=== PATIENT | male | born 1940 | race Caucasian/White ===

== ENCOUNTER → 2020-04-11 15:15 | Outpatient (CLI) | payer MEDICARE, SELFPAY ==
[2020-04-11 17:04] LABS: Absolute Lymphocyte Count 0.94 X10^3/uL (0.83-4.51); Absolute Neutrophil Count 2.4 X10^3/uL (2.0-7.7); Basophil# 0.05 X10^3/uL; Basophil% 1.2 % (0-1); Eosinophils% 9.4 % (0-5); Hematocrit 37.9 % (40-54); Hemoglobin 12.4 g/dL (13.0-16.5); Lymphocyte # 0.94 X10^3/ul (4.0); Mean Corp Hgb Conc 32.7 g/dL (32-36); Mean Corpuscular Hgb 30.5 pg (27.0-32.0); Mean Corpuscular Volume 93.1 fL (80-94); Mean Platelet Vol. 10.1 fl (6.2-12.0); Monocyte# 0.49 X10^3/uL; Monocyte% 11.5 % (0-10); NRBC Flagged by Analyzer 0 % (0-5); Neutrophil # 2.37 X10^3/uL (2.7-7.7); Neutrophil % 55.4 % (47-70); Platelet Count 215 K/mm3 (150-450); RBC Distribution Width CV 12.9 % (11.6-14.6); RBC Distribution Width SD 44.1 fl (35.1-43.9); Red Blood Count 4.07 M/mm3 (4.6-6.2); White Blood Count 4.3 K/mm3 (4.4-11.0)
[2020-04-11 17:52] LABS: ALB/GLOB Ratio 1.2 RATIO (0.9-2.4); AST(SGOT) 27 U/L (15-37); Alanine Aminotransfer ALT/SGPT 29 U/L (16-61); Albumin, Serum 3.9 g/dL (3.2-5.0); Alkaline Phosphatase 59 U/L (45-117); Anion Gap 5 (5-15); BUN 20 mg/dL (7-18); BUN/Creat Ratio 24.2 RATIO (10-20); Calcium,Total 9.4 mg/dL (8.5-10.1); Chloride 108 mmol/L (98-107); Creatinine, Serum 0.83 mg/dL (0.70-1.30); EST Glomerular Filtration Rate 96 mL/min (>60); Est Glom Filt Rate - Afr Amer 116 mL/min (>60); Globulin 3.2 g/dL (2.2-4.2); Glucose 108 mg/dL (74-106); PSA,Total - Annual Screen 4.29 ng/mL (0.00-4.00); Potassium 4.3 mmol/L (3.5-5.1); Protein, Total 7.1 g/dL (6.4-8.2); Sodium Level 138 mmol/L (136-145); Thyroid Stim Hormone (TSH) 1.34 uIU/mL (0.358-3.74)
[2020-04-12 09:23] LABS: Hepatitis C Antibody Non-Reactive (Nonreactive)
== END ==
PROVIDERS: PCP Family Medicine Geriatric Medicine; Visit Provider Family Medicine Geriatric Medicine
DX: I10 Essential (primary) hypertension (principal); E55.9 Vitamin D deficiency, unspecified; Z12.5 Encounter for screening for malignant neoplasm of prostate; Z13.89 Encounter for screening for other disorder
CPT/HCPCS: 36415; 80053; 82306; 84153; 84443; 85025; 86803; G0103

== ENCOUNTER → 2020-05-16 10:12 | Outpatient (CLI) | payer MEDICARE, SELFPAY ==
[2020-05-16 12:20] LABS: Hematocrit 39.6 % (40-54); Hemoglobin 12.7 g/dL (13.0-16.5)
== END ==
PROVIDERS: PCP Family Medicine Geriatric Medicine; Visit Provider Family Medicine Geriatric Medicine
DX: R68.89 Other general symptoms and signs (principal); D64.9 Anemia, unspecified
CPT/HCPCS: 36415; 85014; 85018

== ENCOUNTER → 2021-03-10 08:23 | Outpatient (CLI) | payer MEDICARE, SELFPAY | PROVIDERS: PCP Family Medicine Geriatric Medicine; Referring Provider Family Medicine Geriatric Medicine; Visit Provider Family Medicine Geriatric Medicine | DX: R68.83 Chills (without fever) (principal) | CPT/HCPCS: 87635; 87804; 87807; C9803; U0005; U0003 ==

== ENCOUNTER 2021-05-11 05:34 | Day surgery (SDC) | payer MEDICARE, SELFPAY ==
--- NOTE | 2021-05-08 08:39 | EKG12_ITS ---
Test Reason : PRE OP Blood Pressure : / mmHG Vent. Rate : 064 BPM Atrial Rate : 064 BPM P-R Int : 218 ms QRS Dur : 140 ms QT Int : 442 ms P-R-T Axes : 031 -73 067 degrees QTc Int : 455 ms Sinus rhythm with 1st degree A-V block Right bundle branch block Left anterior fascicular block Bifascicular block Abnormal ECG Confirmed by SAMANTHA SHARP, CLIF ([id number]), dictionary editor RUBY PINON ([id number]) on 05/08/2021 1:42:55 PM Referred By: Shady Looney Confirmed By:CLIF SINGH MD
--- NOTE | 2021-05-08 09:00 | RAD_ITS ---
HISTORY: PREOP/HISTORY OF RADIATION. TECHNIQUE: XR Chest 2 Views. # of images incl. paperwork: 2. COMPARISON: None. FINDINGS: CARDIOMEDIASTINAL STRUCTURES: Cardiac silhouette not enlarged. Mediastinal contour unremarkable with calcification of the aorta. LUNGS: Radiographically clear. PLEURA: No pleural effusion or pneumothorax. OSSEOUS STRUCTURES: Mild degenerative change. RAD/Chest PA and Lateral IMPRESSION: No radiographic evidence of acute cardiopulmonary disease. at 0805 Reported and signed by: Zina Louie MD Electronically Signed: Zina Louie MD at 8:04 EDT Tel , Service support ,
[2021-05-08 10:45] LABS: Hematocrit 37.9 % (40-54); Hemoglobin 12.5 g/dL (13.0-16.5); Mean Platelet Vol. 10.2 fl (6.2-12.0); Platelet Count 203 K/mm3 (150-450); RBC Distribution Width CV 13.2 % (11.6-14.6); RBC Distribution Width SD 45.1 fl (35.1-43.9); Red Blood Count 4.03 M/mm3 (4.6-6.2); White Blood Count 3.9 K/mm3 (4.4-11.0)
[2021-05-11 06:44] VITALS: BP 161/81; PULSE 59; RESP 16; TEMP 36.1; O2SAT 97; BMI 25.7
--- NOTE | 2021-05-11 06:55 | PCM.HP.BLA ---
History and Physical Date of Admission: 05/11/21 Intake Vital Signs 04/26/21 08:00 Height 5 ft 11 in Weight: 194 lb BMI 27.0 BP 177/75 H Blood Pressure Location Rt brachial Position Sitting Respiration 16 Intake Visit Reasons: Update H/P Hernia Surgery Oct Chief Complaint: left inguinal hernia Allergies No Known Allergies Allergy (Verified 04/26/21 07:59) Medications NK 03/14/21 [History Confirmed 03/14/21] PFSH Medical History NHL (non-Hodgkin's lymphoma) Family History Mother Hypertension Social History Smoking Status: Never smoker alcohol intake: never HPI HPI HPI: KELVIN ERAZO, is a 80 M who presents to the office today for updating H&P. Patient is still having left groin bulging. Patient reports bulging in the left groin which does spontaneously reduce. No nausea or vomiting or fevers or chills. ROS General General: No weight change, appetite, fatigue, colon cancer, breast cancer or weakness HEENT HEENT: No difficulty swallowing, eye injury, eye surgery, swollen glands or hoarseness Endo Endocrine: No thyroid disease, diabetes mellitus, thyroid cancer, Hair loss, heat intolerance or cold intolerance Skin Skin: No rash or changing moles Breast Breast: No left breast lump, right breast lump, nipple discharge, breast pain, abnormal mammogram, abnormal US or breast enlargement Musc Musculoskeletal: Yes back problems; No arthritis, rheumatoid arthritis, gout or joint pain Cardio Cardiovascular: No murmur, pacemaker, heart disease, atrial fibrillation, high blood pressure, heart attack, heart stent, palpitations, shortness of breat with exertion or chest pain Psych Psychiatric: No depression, anxiety or hearing voices Resp Respiratory: No shortness of breath, No sleep apnea, Yes cough, No COPD, No asthma, No emphysema and No wheezing Gastro Gastrointestinal: No abdominal pain, No nausea or vomiting, No diarrhea, No constipation, No blood in stool, No acid reflux, No hemorrhoids, No ulcers, No gallbladder problem and No black,tarry stools Johnathan Hematologic: No blood thinners, No blood disorders, No bleeding, No anemia and No blood clots Neuro Neurologic: No system reviewed and no additional complaints, except as documented, No as per HPI, No abnormal gait, No abnormal hearing, No abnormal movements, No abnormal speech, No behavioral changes, No burning sensations, No confusion, No convulsions, No disequilibrium, No dizziness, No localized weakness, No frequent falls, No headache(s), No lack of coordination, No loss of vision, No memory loss, No numbness, No other visual disturbances, No radicular pain, No restless legs, No sensory deficit, No syncope, No tingling, No tremor(s), No weakness and No other Exam Const General: cooperative Orientation: alert and oriented x3 HENMT Head: normal to inspection Neck Neck: normal visual inspection and full ROM Chest Chest palpation & inspection: normal inspection of the chest Resp Effort & Inspection: normal respiratory effort Auscultation: clear to auscultation bilaterally Cardio Rate: regular rate Rhythm: regular rhythm GI Inspection: non-distended Palpation: soft, hernia indirect inguinal on the left and nontender Skin General: no rashes or lesions noted Neuro General: patient alert and patient oriented x3 Extrem General: full ROM Psych Appearance: grossly normal Mental Status: mental status grossly normal Assessment and Plan Assessment and Plan (1) Left inguinal hernia: Status: Acute Plan - Dr. Shady Looney MD: Patient reports left inguinal hernia and does have a bulge in this area as well. I had discussed robotic assisted laparoscopic inguinal hernia repair with mesh with him in the past. He is here for updated H&P as he wanted to wait until April for his surgery. Questions were answered and patient is in agreement with proceeding with inguinal hernia repair with mesh. Shady Looney MD Pager: [facility] [address] [place] [address], [address] [place] [address] Office: I have re-examined the patient. There are no clinical changes since date of exam.
[2021-05-11] MEDS: Lactated Ringers 1,000 ML 100 ML IV ×2 (07:04→08:15)
[2021-05-11] MEDS: Cefazolin 2 GM in 0.9% Normal Saline 100 ML IV (07:26)
[2021-05-11] MEDS: Bupivacaine Mpf 0.5% 30 ML VIAL (08:30)
[2021-05-11 08:47] VITALS: BP 133/62; BP 161/81; PULSE 54; RESP 16; TEMP 36; O2SAT 90
[2021-05-11 09:00] VITALS: BP 127/64; BP 161/81; PULSE 56; RESP 16; O2SAT 94
[2021-05-11 09:15] VITALS: BP 115/58; BP 161/81; PULSE 40; RESP 16; O2SAT 95
[2021-05-11 09:30] VITALS: BP 122/64; BP 161/81; PULSE 42; RESP 16; TEMP 35.3; O2SAT 94
--- NOTE | 2021-05-11 09:37 | OP.PCM_ITS ---
Problems Associated Problem List Diagnoses (1) Left inguinal hernia: Report of Operation Date of Procedure: 05/11/21 Pre-Operative Diagnosis: Left inguinal hernia Post-Operative Diagnosis: Left inguinal hernia Surgery/Procedure Performed:: Robotic assisted laparoscopic left inguinal hernia repair with mesh Description of Procedure: Patient was brought back to the operating room and g eneral anesthesia was induced. The abdomen was prepped and draped in usual sterile fashion. A midline incision was made superior to the umbilicus and deepened to the fascia which was elevated and a Veress needle was placed into the abdomen. A drop test was performed. Next the abdomen was insufflated to 15 mmHg. The Veress needle was removed and a camera port was placed. The abdomen was inspected and there were no injuries from entry. Next the inguinal regions were inspected and the patient had a left inguinal hernia containing colon with no right inguinal hernia. A 5 mm port was placed in the right lateral position and left lateral position under direct visualization. The patient was placed in Trendelenburg position and the robot was docked. Using electrical cautery scissors an incision was made in the peritoneum. Blunt dissection was used to free up the peritoneum inferiorly until the hernia sac was encountered. The hernia sac and colon were reduced as 1 as this was a sliding hernia. Next the dissection was carried posteriorly until there was none from behind the hernia. Progrip mesh was trimmed and placed in the left inguinal region and unfolded completely covering the hernia. The peritoneum was reapproximated using a running 3 OV lock suture. There is a large opening in the peritoneum where the hernia reached the colon and this was closed with a running 3 OV lock suture as well. There was complete coverage of the mesh with peritoneum at the end of the case. Next the robot was undocked and the port was removed and the abdomen was allowed to desufflate. The incisions were injected with local anesthetic and closed with interrupted 4-0 Monocryl sutures and Steri-Strips and bandages. Scrotum was checked again the case and contain both testicles. Patient was brought back in stable condition. Grafts/Implants Used: ProGrip mesh Admit VTE Documentation VTE Mechan Device Prophylaxis: SCD's
--- NOTE | 2021-05-11 09:40 | EX.PCM.DISCH ---
Discharge Instructions Procedure Hernia Diet Discharge Diet: Light diet - advance as tolerated Activity Discharge Activity: May Not Drive (for 2-3 days or while taking narcotic pain meds.) and May Shower (with the bandage in place 1-2 days after surgery.) Lifting Restrictions: 20 pounds for 6 weeks. Additional Activity Instructions:: Climbing stairs is fine, walking is encouraged. Sitting in bed may be uncomfortable. Sitting up using your lateral muscles (sitting up sideways) is usually more comfortable. Do not drive, work heavy equipment of sign legal documents for 24 hours. If your hernia repair was an ingunial repair, you may have scrotal swelling, an ice pack and/or athletic support can provide more comfort. Pain medications may cause nausea, you should typically eat light foods as you take your pain medications. Pain medications may also cause constipation. If you have difficulty with this, discuss with your doctor. Dressing / Incision Call your doctor if your incision/area has: Continuous Slow Oozing, Sudden Increased Bleeding, Increased Pain/ Swelling, Increased Redness and Foul Smelling Discharge Call your doctor if you observe: Fever of 101 or Higher Suture Line Care: Avoid Pulling/Pushing and Avoid Pinching/Bending Remove Dressing in: 2 days Follow Up Care Please Follow Up With: Shady Looney MD When: Please call to schedule 2 week follow up appointment. [phone] Test Results: Test results from this visit will be discussed in further detail at your follow-up appointment, if applicable. Discharge Plan Admission Attending Provider: Shady Looney Primary Care Provider: Giovani Vargas Chi Discharge Orders/Prescriptions Prescriptions: New oxycodone-acetaminophen [Percocet] 5-325 mg tablet 1 tab PO Q6H PRN (Reason: pain) 5 Days Qty: 10 RF: 0 No Action potassium 99 mg Tablet 99 mg PO DAILY RF: 0 ascorbic acid (vitamin C) [Vitamin C] 500 mg Tablet 500 mg PO DAILY RF: 0 omega 7-odt-yci-fish oil [Fish Oil] 1,200 (144-216) mg Capsule 1,200 cap PO DAILY RF: 0 Referrals / Follow Up: Giovani Vargas Chi, MD [Primary Care Provider] - Disposition Disposition (needs filled in before D/C Order can be placed): Home, Self Care
[2021-05-11 10:54] VITALS: BP 122/60; BP 161/81; PULSE 52; RESP 16; TEMP 36.1; O2SAT 95
== END 2021-05-11 10:57 | disposition home or self-care (01) ==
LOC: SDC 05:35 → AC 05:35
PROVIDERS: Anesthesiology; PCP Family Medicine Geriatric Medicine; Referring Provider Surgery; Visit Provider Surgery
PROC: 0YQ64ZZ Repair Left Inguinal Region, Percutaneous Endoscopic Approach (ICD-10-PCS; CPT 49650; principal; 2021-05-11 07:10)
DX: K40.90 Unilateral inguinal hernia, without obstruction or gangrene, not specified as recurrent (principal); I45.10 Unspecified right bundle-branch block; Z92.3 Personal history of irradiation; Z85.72 Personal history of non-Hodgkin lymphomas
CPT/HCPCS: 00840; 49650; S2900; 36415; 71046; 85027; 93005; J7120; J2405

== ENCOUNTER → 2023-04-10 | Outpatient (CLI) | payer MEDICARE, SELFPAY ==
[2023-04-10 11:04] LABS: Absolute Lymphocyte Count 1.05 X10^3/uL (0.83-4.51); Basophil# 0.04 X10^3/uL; Eosinophil# 0.35 X10^3/uL; Hematocrit 38.3 % (40-54); Hemoglobin 12.6 g/dL (13.0-16.5); Lymphocyte # 1.05 X10^3/ul (0.83-4.51); Lymphocyte % 26.9 % (19-41); Mean Corp Hgb Conc 32.9 g/dL (32-36); Mean Corpuscular Hgb 31.3 pg (27.0-32.0); Mean Corpuscular Volume 95.3 fL (80-94); Mean Platelet Vol. 10.3 fl (6.2-12.0); Monocyte# 0.47 X10^3/uL; NRBC Flagged by Analyzer 0 % (0-5); Neutrophil # 1.99 X10^3/uL (2.7-7.7); Neutrophil % 50.8 % (47-70); Platelet Count 213 K/mm3 (150-450); RBC Distribution Width CV 12.7 % (11.6-14.6); RBC Distribution Width SD 44.5 fl (35.1-43.9); Red Blood Count 4.02 M/mm3 (4.6-6.2); White Blood Count 3.9 K/mm3 (4.4-11.0)
[2023-04-10 11:18] LABS: Vitamin D,25 Hydroxy 32.2 ng/mL
[2023-04-10 11:30] LABS: ALB/GLOB Ratio 1.3 RATIO (0.9-2.4); AST(SGOT) 24 U/L (15-37); Alanine Aminotransfer ALT/SGPT 36 U/L (16-61); Albumin, Serum 3.8 g/dL (3.2-5.0); Alkaline Phosphatase 60 U/L (45-117); Anion Gap 4 (5-15); BUN 17 mg/dL (7-18); BUN/Creat Ratio 19.3 RATIO (10-20); Calcium,Total 9.4 mg/dL (8.5-10.1); Chloride 108 mmol/L (98-107); Creatinine, Serum 0.88 mg/dL (0.70-1.30); EST Glomerular Filtration Rate 88 mL/min (>60); Est Glom Filt Rate - Afr Amer 107 mL/min (>60); Glucose 134 mg/dL (74-106); Potassium 4.6 mmol/L (3.5-5.1); Protein, Total 6.8 g/dL (6.4-8.2); Sodium Level 139 mmol/L (136-145); Thyroid Stim Hormone (TSH) 1.15 uIU/mL (0.358-3.74)
== END | disposition home or self-care (01) ==
LOC: POLAB3 09:16
PROVIDERS: PCP Family Medicine Geriatric Medicine; Visit Provider Family Medicine Geriatric Medicine
DX: E55.9 Vitamin D deficiency, unspecified (principal); I10 Essential (primary) hypertension
CPT/HCPCS: 36415; 80053; 82306; 84443; 85025

== ENCOUNTER → 2023-04-26 | Outpatient (CLI) | payer MEDICARE, SELFPAY ==
[2023-04-26 11:16] LABS: Anion Gap 4 (5-15); BUN 18 mg/dL (7-18); BUN/Creat Ratio 24.2 RATIO (10-20); Calcium,Total 9.1 mg/dL (8.5-10.1); Chloride 110 mmol/L (98-107); Creatinine, Serum 0.74 mg/dL (0.70-1.30); EST Glomerular Filtration Rate 107 mL/min (>60); Est Glom Filt Rate - Afr Amer 130 mL/min (>60); Glucose 141 mg/dL (74-106); Potassium 4.2 mmol/L (3.5-5.1); Sodium Level 141 mmol/L (136-145)
== END | disposition home or self-care (01) ==
LOC: POLAB3 09:42
PROVIDERS: PCP Family Medicine Geriatric Medicine; Visit Provider Family Medicine Geriatric Medicine
DX: I10 Essential (primary) hypertension (principal)
CPT/HCPCS: 36415; 80048

== ENCOUNTER → 2023-10-07 | Outpatient (CLI) | payer MEDICARE, SELFPAY ==
[2023-10-07 10:24] LABS: Absolute Lymphocyte Count 0.95 X10^3/uL (0.83-4.51); Absolute Neutrophil Count 2.9 X10^3/uL (2.0-7.7); Basophil# 0.02 X10^3/uL; Basophil% 0.4 % (0-1); Eosinophil# 0.31 X10^3/uL; Eosinophils% 6.8 % (0-5); Hematocrit 36.8 % (40-54); Lymphocyte # 0.95 X10^3/ul (0.83-4.51); Lymphocyte % 20.7 % (19-41); Mean Corp Hgb Conc 32.6 g/dL (32-36); Mean Corpuscular Hgb 30.8 pg (27.0-32.0); Mean Corpuscular Volume 94.6 fL (80-94); Mean Platelet Vol. 10.4 fl (6.2-12.0); Monocyte# 0.41 X10^3/uL; NRBC Flagged by Analyzer 0 % (0-5); Neutrophil # 2.87 X10^3/uL (2.7-7.7); Neutrophil % 62.7 % (47-70); Platelet Count 189 K/mm3 (150-450); RBC Distribution Width SD 44.9 fl (35.1-43.9); Red Blood Count 3.89 M/mm3 (4.6-6.2); White Blood Count 4.6 K/mm3 (4.4-11.0)
[2023-10-07 11:07] LABS: Vitamin D,25 Hydroxy 26.9 ng/mL
[2023-10-07 11:18] LABS: ALB/GLOB Ratio 1.1 RATIO (0.9-2.4); AST(SGOT) 24 U/L (15-37); Alanine Aminotransfer ALT/SGPT 28 U/L (16-61); Albumin, Serum 3.5 g/dL (3.2-5.0); Alkaline Phosphatase 57 U/L (45-117); Anion Gap 3 (5-15); BUN 16 mg/dL (7-18); BUN/Creat Ratio 19.3 RATIO (10-20); Calcium,Total 9.3 mg/dL (8.5-10.1); Chloride 112 mmol/L (98-107); Creatinine, Serum 0.83 mg/dL (0.70-1.30); EST Glomerular Filtration Rate 94 mL/min (>60); Est Glom Filt Rate - Afr Amer 114 mL/min (>60); Globulin 3.1 g/dL (2.2-4.2); Glucose 142 mg/dL (74-106); Potassium 4.6 mmol/L (3.5-5.1); Protein, Total 6.6 g/dL (6.4-8.2); Sodium Level 140 mmol/L (136-145); Thyroid Stim Hormone (TSH) 1.94 uIU/mL (0.358-3.74)
[2023-10-08 20:58] LABS: Hemoglobin A1c 6.2 % (3.8-5.6)
== END | disposition home or self-care (01) ==
LOC: LAB 09:27
PROVIDERS: PCP Family Medicine Geriatric Medicine; Visit Provider Family Medicine Geriatric Medicine
DX: R73.03 Prediabetes (principal); I10 Essential (primary) hypertension; E55.9 Vitamin D deficiency, unspecified
CPT/HCPCS: 36415; 80053; 82306; 83036; 84443; 85025

== ENCOUNTER → 2023-11-06 | Outpatient (CLI) | payer MEDICARE, SELFPAY ==
[2023-11-06 10:27] LABS: Absolute Lymphocyte Count 0.98 X10^3/uL (0.83-4.51); Absolute Neutrophil Count 3.4 X10^3/uL (2.0-7.7); Basophil# 0.03 X10^3/uL; Basophil% 0.6 % (0-1); Eosinophil# 0.34 X10^3/uL; Eosinophils% 6.3 % (0-5); Hematocrit 32.4 % (40-54); Hemoglobin 10.7 g/dL (13.0-16.5); Lymphocyte # 0.98 X10^3/ul (0.83-4.51); Mean Corpuscular Hgb 30.7 pg (27.0-32.0); Mean Corpuscular Volume 92.8 fL (80-94); Mean Platelet Vol. 10.6 fl (6.2-12.0); Monocyte# 0.61 X10^3/uL; Monocyte% 11.2 % (0-10); NRBC Flagged by Analyzer 0 % (0-5); Neutrophil # 3.44 X10^3/uL (2.7-7.7); Neutrophil % 63.2 % (47-70); Platelet Count 235 K/mm3 (150-450); RBC Distribution Width CV 12.7 % (11.6-14.6); Red Blood Count 3.49 M/mm3 (4.6-6.2); White Blood Count 5.4 K/mm3 (4.4-11.0)
[2023-11-06 10:28] LABS: ALB/GLOB Ratio 1.1 RATIO (0.9-2.4); AST(SGOT) 29 U/L (15-37); Alanine Aminotransfer ALT/SGPT 36 U/L (16-61); Albumin, Serum 3.3 g/dL (3.2-5.0); Alkaline Phosphatase 55 U/L (45-117); Anion Gap 4 (5-15); BUN 21 mg/dL (7-18); BUN/Creat Ratio 26.2 RATIO (10-20); Calcium,Total 8.8 mg/dL (8.5-10.1); Chloride 110 mmol/L (98-107); EST Glomerular Filtration Rate 99 mL/min (>60); Est Glom Filt Rate - Afr Amer 119 mL/min (>60); Glucose 166 mg/dL (74-106); Protein, Total 6.3 g/dL (6.4-8.2); Sodium Level 140 mmol/L (136-145)
== END | disposition home or self-care (01) ==
LOC: POLAB3 09:04
PROVIDERS: PCP Family Medicine Geriatric Medicine; Visit Provider Family Medicine Geriatric Medicine
DX: I10 Essential (primary) hypertension (principal)
CPT/HCPCS: 36415; 80053; 85025

== ENCOUNTER → 2023-11-11 | Outpatient (CLI) | payer MEDICARE, SELFPAY ==
[2023-11-11 11:21] LABS: Absolute Lymphocyte Count 0.99 X10^3/uL (0.83-4.51); Absolute Neutrophil Count 2.3 X10^3/uL (2.0-7.7); Basophil# 0.01 X10^3/uL; Basophil% 0.2 % (0-1); Eosinophil# 0.28 X10^3/uL; Eosinophils% 6.9 % (0-5); Hemoglobin 11.3 g/dL (13.0-16.5); Lymphocyte # 0.99 X10^3/ul (0.83-4.51); Lymphocyte % 24.4 % (19-41); Mean Corp Hgb Conc 33.2 g/dL (32-36); Mean Corpuscular Hgb 30.7 pg (27.0-32.0); Mean Corpuscular Volume 92.4 fL (80-94); Mean Platelet Vol. 10.1 fl (6.2-12.0); Monocyte# 0.45 X10^3/uL; Monocyte% 11.1 % (0-10); NRBC Flagged by Analyzer 0 % (0-5); Neutrophil # 2.29 X10^3/uL (2.7-7.7); Neutrophil % 56.7 % (47-70); Platelet Count 257 K/mm3 (150-450); RBC Distribution Width CV 12.9 % (11.6-14.6); RBC Distribution Width SD 43.4 fl (35.1-43.9); RET-HE 32.6 pg (30-35); Red Blood Count 3.68 M/mm3 (4.6-6.2); Reticulocyte Count 1.93 % (0.5-1.5); White Blood Count 4.1 K/mm3 (4.4-11.0)
[2023-11-11 11:37] LABS: Vitamin B12 178 pg/mL (211-911)
[2023-11-11 11:44] LABS: Ferritin 700 ng/mL (26-388); Iron 72 ug/dL (65-175); Iron Binding Capacity,Total 320 ug/dL (250-450); PERCENT IRON SATURATION 22.5 % (15.0-55.0)
== END | disposition home or self-care (01) ==
LOC: POLAB3 09:28
PROVIDERS: PCP Family Medicine Geriatric Medicine; Visit Provider Family Medicine Geriatric Medicine
DX: D50.9 Iron deficiency anemia, unspecified (principal); I10 Essential (primary) hypertension
CPT/HCPCS: 36415; 82607; 82728; 82746; 83540; 83550; 85025; 85045

== ENCOUNTER 2023-11-12 10:58 | Emergency (ER) | payer MEDICARE, SELFPAY ==
[2023-11-12] VITALS (10 sets, daily range): BP systolic 109–134; BP diastolic 46–82; PULSE 25–60; RESP 16–30; TEMP 36.6; O2SAT 66–100; BMI 32.6
--- NOTE | 2023-11-12 11:00 | RAD_ITS ---
INDICATION: trauma EXAMINATION/TECHNIQUE: X-RAY - XR Chest 1 View COMPARISON: Prior study dated: 05/08/2021 FINDINGS: LINES/DEVICES: None. LUNGS: Prominent markings in the right lower lung likely exaggerated by hypoventilatory changes. No focal consolidation is seen. No evidence of pleural effusions or pneumothorax. MEDIASTINUM AND CARDIOVASCULAR STRUCTURES: Cardiac silhouette not enlarged. Central airways and mediastinal contour are unremarkable. BONES AND SOFT TISSUES: Degenerative changes of the visualized thoracic spine. RAD/Chest 1 View (Portable) IMPRESSION: No radiographic evidence of acute cardiopulmonary disease. Electronically Signed: Nigel Rivera MD at 12:01 EDT ,
--- NOTE | 2023-11-12 11:02 | RAD_ITS ---
INDICATION: trauma EXAMINATION/TECHNIQUE: X-RAY - XR Pelvis 1 or 2 Views COMPARISON: No relevant prior comparison study available FINDINGS: PELVIC BONES: Deformity of the left inferior pubic ramus likely due to old injury. No evidence of acute displaced fracture. Note that overlapping bowel shadows may however obscure fine detail. Sacroiliac joints are unremarkable. No widening of the pubic symphysis. HIPS: The articular structures are unremarkable. No displaced fracture seen in this frontal view. SOFT TISSUES: No soft tissue swelling or gas. RAD/Pelvis 1 or 2 Views IMPRESSION: No evidence of displaced pelvic or hip fracture. Electronically Signed: Nigel Rivera MD at 12:00 EDT ,
--- NOTE | 2023-11-12 11:02 | CT_ITS ---
INDICATION: trauma EXAMINATION: CT BRAIN - CT Head or Brain W/O Contrast Injection TECHNIQUE: Multiple axial images were obtained of the head without intravenous contrast. A radiation dose optimization technique was used for this scan. IV Contrast dosage and agent: None. RADIATION DOSAGE (If Supplied By Facility): CTDIvol = ( 44.99 ) mGy, DLP = ( 846.73 ) mGycm COMPARISON: No relevant prior comparison study available FINDINGS: BRAIN PARENCHYMA: No intra- or extra-axial hemorrhage. No evidence of acute infarct. No intracranial mass or mass effect. There is preservation of the nelsno/white matter interface. Posterior fossa structures are unremarkable. Atherosclerotic calcifications of the cavernous internal carotid arteries. CSF SPACES: Appropriate for age. No hydrocephalus. Basal cisterns are patent. CALVARIUM, SKULL BASE, PARANASAL SINUSES AND MASTOID AIR CELLS: Mucosal thickening of the ethmoids, maxillary and right sphenoid sinuses. No discrete lytic or blastic abnormalities. ORBITS: Both globes, extraocular muscles, optic nerves and retrobulbar fat appear unremarkable. CT/Brain/Head without Contrast IMPRESSION: No acute intracranial process. Electronically Signed: Nigel Rivera MD at 12:06 EDT ,
--- NOTE | 2023-11-12 11:02 | CT_ITS ---
STUDY: CT CHEST, ABDOMEN T PELVIS WITH CONTRAST REASON FOR EXAM: Male, 82 years old. Trauma RADIATION DOSAGE (If Supplied By Facility): CTDIvol = ( 22.10 ) mGy, DLP = ( 2202.61 ) mGycm TECHNIQUE: Transaxial imaging was performed following intravenous administration of IV 100mL Isovue-300. Individualized dose optimization techniques were used for this CT. COMPARISON: No relevant prior comparison study available FINDINGS: CHEST Small right anterior and basilar pneumothorax. Hypoventilatory changes in the lung bases. No evidence of pulmonary contusion. Scattered atelectatic changes. No evidence of pleural effusions. Normal heart and pericardium. There are calcifications of the coronary arteries. Slightly prominent mediastinal node in the aortopulmonic window likely reactive. Otherwise no evidence of adenopathy. Normal hilar regions. No evidence of central pulmonary embolism. There is atherosclerotic calcifications and tortuosity of the aortic arch and descending thoracic aorta. Fractures of the anterior and lateral aspect of the right fourth, fifth, sixth and seventh ribs. ABDOMEN Normal liver. Normal gallbladder and extrahepatic biliary system. Normal spleen. Normal pancreas. Normal bilateral adrenal glands. Normal right kidney. Normal left kidney. Normal visualized stomach. Normal small intestine. Sigmoid diverticulosis without evidence of acute diverticulitis. The sigmoid colon is not well distended. The appendix is visualized and appears normal. Atherosclerotic calcifications of the abdominal aorta. Infrarenal fusiform abdominal aortic aneurysm extending for a length of approximately 9 cm with maximum AP diameter of 5 cm. There are peripheral atherosclerotic calcifications and mild mural thrombus. Normal inferior vena cava. Normal retroperitoneum. Tiny umbilical hernia containing fat. Old fracture of the left inferior pubic ramus. Degenerative changes of the spine. Otherwise no evidence of acute fracture. PELVIS The urinary bladder is not well distended. There is no pelvic fluid. There is no pelvic lymphadenopathy or mass lesion. CT/CT Chest, Abd, Pel w/Contrast IMPRESSION: 1. Fractures of the anterior and lateral right fourth, fifth, sixth and seventh ribs. 2. Small anterior and basilar right pneumothorax. 3. No evidence of solid organ injury, free air or free fluid in the abdomen. 4. Infrarenal abdominal aortic aneurysm for which follow-up examination in 6 months and vascular surgery consultation is recommended. 5. Diverticulosis without evidence of acute diverticulitis. Electronically Signed: Nigel Rivera MD at 12:25 EDT ,
--- NOTE | 2023-11-12 11:02 | EKG12_ITS ---
Test Reason : TRAUMA Blood Pressure : / mmHG Vent. Rate : 046 BPM Atrial Rate : 067 BPM P-R Int : 000 ms QRS Dur : 116 ms QT Int : 510 ms P-R-T Axes : 054 -65 115 degrees QTc Int : 446 ms Critical Test Result: AV Block Sinus rhythm with 2nd degree A-V block (Mobitz I) Left axis deviation Right bundle branch block Minimal voltage criteria for LVH, may be normal variant ( R in aVL ) Inferior infarct , age undetermined Abnormal ECG Confirmed by SAMANTHA SHARP, CLIF ([id number]), department editor DONAL RIVAS ([id number]) on 11/13/2023 9:17:29 AM Referred By: Confirmed By:CLIF SINGH MD
--- NOTE | 2023-11-12 11:02 | CT_ITS ---
INDICATION: trauma EXAMINATION: CT CERVICAL SPINE - CT Spine Cervical W/O Contrast Injection TECHNIQUE: Helically acquired images were obtained of the cervical spine. 2D reformatted images were reviewed. A radiation dose optimization technique was used for this scan. IV Contrast dosage and agent: None. RADIATION DOSAGE (If Supplied By Facility): CTDIvol = ( 24.52 ) mGy, DLP = ( 583.40 ) mGycm COMPARISON: No relevant prior comparison study available FINDINGS: VERTEBRAE: No fracture or traumatic subluxation. No discrete lytic or blastic abnormality. Normal alignment. Normal cervical lordosis. DISCS and SPINAL CANAL: Disc heights are preserved. Degenerative changes of the left apophyseal joints and the level of C3-C4 with mild narrowing of the left neural foramina. No critical stenosis. NECK SOFT TISSUES: No prevertebral soft tissue swelling. Atherosclerotic calcifications of the carotid arteries bilaterally. LUNG APICES: Reported separately. CT/Spine Cervical without Contras IMPRESSION: No evidence of acute cervical spinal fracture or spondylolisthesis. Electronically Signed: Nigel Rivera MD at 12:10 EDT ,
[2023-11-12] MEDS: Morphine 4 MG/ML Syringe IV ×2 (11:08→11:37)
[2023-11-12] MEDS: Ondansetron 4 MG/2 ML Vial IV (11:08)
[2023-11-12] MEDS: 0.9% Normal Saline (1000mL) 1,000 ML 1000 ML IV (11:08)
--- NOTE | 2023-11-12 11:12 | EX.ED.GENINJ ---
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 Reportedly the truck then came off the flatbed rolling he states the door struck him on the right side of his head causing him to fall to the ground the truck tires then rolled down the right side of his body from chest across to his lower legs. Noted to be bradycardic for EMS. They note tread imprints on his lower extremities and right chest trauma. Patient states he takes an aspirin a day but does not take any blood thinners. He has a history of lymphoma that was successfully treated in the past. Tetanus Immunization: <5 years [facility] Medical History History of edema Leg cramps Loss of hearing NHL (non-Hodgkin's lymphoma) Non-smoker Wears dentures Wears glasses Home Medications ascorbic acid (vitamin C) 500 mg tablet (Vitamin C) 500 mg PO DAILY 05/04/21 [History Last Taken Unknown] omega 2-zvt-faw-fish oil 1,200 mg (144 mg-216 mg) capsule (Fish Oil) 1,200 cap PO DAILY 05/04/21 [History Last Taken Unknown] potassium 99 mg tablet 99 mg PO DAILY 05/04/21 [History Last Taken Unknown] Allergy/AdvReac Type Severity Reaction Status Date / Time No Known Allergies Allergy Verified 05/25/21 07:51 Family History Mother Hypertension Surgical History Hx of lymph node biopsy S/P left inguinal hernia repair Social History Smoking Status: Never smoker alcohol intake: never ROS ROS ED Constitutional Constitutional ED: Denies chills, fever(s) or weight loss Eyes Eyes: Denies change in vision or diplopia ENT ENT ED: Denies ear pain, rhinorrhea or sore throat Cardiovascular Cardiovascular: Reports chest pain; Denies orthopnea, palpitations or racing heartbeat Respiratory/Chest Respiratory/Chest: Reports dyspnea; Denies cough or orthopnea Gastrointestinal Gastrointestinal: Reports abdominal pain; Denies diarrhea, nausea or vomiting Genitourinary Genitourinary ED: Denies dysuria, hematuria or urinary frequency Musculoskeletal Musculoskeletal: Reports other Details: Leg pain ; Denies arthralgias or myalgias Integumentary Reports Abrasions; Denies abscess or rash Neurologic Neurologic: Denies headache(s) or weakness Psychiatric Psychiatric: Denies anxiety, depression, suicidal ideation or suicidal thoughts Endocrine Endocrinology: Denies polydipsia, polyphagia or polyuria Allergic/Immunologic Allergic/Immunologic ED: Denies mouth swelling, tongue swelling or urticaria EXAM Physical Exam Const Vital Signs: 11/12/23 10:59 11/12/23 11:06 11/12/23 11:09 Temperature 97.8 F 97.8 F Temperature Source Temporal Pulse Rate 40 L Pulse Rate [1 (Initial Baseline)] Pulse Rate [10] Pulse Rate [11] Pulse Rate [12] Pulse Rate [13] Pulse Rate [14] Pulse Rate [15] Pulse Rate [16] Pulse Rate [2] Pulse Rate [3] Pulse Rate [4] Pulse Rate [5] Pulse Rate [6] Pulse Rate [7] Pulse Rate [8] Pulse Rate [9] Respiratory Rate 18 Respiratory Rate [1 (Initial Baseline)] Respiratory Rate [10] Respiratory Rate [11] Respiratory Rate [12] Respiratory Rate [13] Respiratory Rate [14] Respiratory Rate [15] Respiratory Rate [16] Respiratory Rate [2] Respiratory Rate [3] Respiratory Rate [4] Respiratory Rate [5] Respiratory Rate [6] Respiratory Rate [7] Respiratory Rate [8] Respiratory Rate [9] Respiratory Effort Normal Respiratory Depth Normal Respiratory Pattern Normal Blood Pressure 125/57 H Blood Pressure [1 (Initial Baseline)] Blood Pressure [10] Blood Pressure [11] Blood Pressure [12] Blood Pressure [13] Blood Pressure [14] Blood Pressure [15] Blood Pressure [16] Blood Pressure [2] Blood Pressure [3] Blood Pressure [4] Blood Pressure [5] Blood Pressure [6] Blood Pressure [7] Blood Pressure [8] Blood Pressure [9] Blood Pressure Mean 79 Pulse Ox Oxygen Delivery Method Room Air Room Air Nasal Cannula Oxygen Delivery Method [1 (Initial Baseline)] Oxygen Delivery Method [10] Oxygen Delivery Method [11] Oxygen Delivery Method [12] Oxygen Delivery Method [13] Oxygen Delivery Method [14] Oxygen Delivery Method [15] Oxygen Delivery Method [16] Oxygen Delivery Method [2] Oxygen Delivery Method [3] Oxygen Delivery Method [4] Oxygen Delivery Method [5] Oxygen Delivery Method [6] Oxygen Delivery Method [7] Oxygen Delivery Method [8] Oxygen Delivery Method [9] Oxygen Flow Rate (L/min) 3 Oxygen Flow Rate (L/min) [1 (Initial Baseline)] Oxygen Flow Rate (L/min) [10] Oxygen Flow Rate (L/min) [11] Oxygen Flow Rate (L/min) [12] Oxygen Flow Rate (L/min) [13] Oxygen Flow Rate (L/min) [14] Oxygen Flow Rate (L/min) [15] Oxygen Flow Rate (L/min) [16] Oxygen Flow Rate (L/min) [2] Oxygen Flow Rate (L/min) [3] Oxygen Flow Rate (L/min) [4] Oxygen Flow Rate (L/min) [5] Oxygen Flow Rate (L/min) [6] Oxygen Flow Rate (L/min) [7] Oxygen Flow Rate (L/min) [8] Oxygen Flow Rate (L/min) [9] 11/12/23 11:42 11/12/23 11:58 11/12/23 12:07 Temperature 98 F Temperature Source Pulse Rate 50 L 50 L Pulse Rate [1 (Initial Baseline)] 58 L Pulse Rate [10] 45 L Pulse Rate [11] 45 L Pulse Rate [12] 25 L Pulse Rate [13] 57 L Pulse Rate [14] 46 L Pulse Rate [15] 44 L Pulse Rate [16] 39 L Pulse Rate [2] 54 L Pulse Rate [3] 48 L Pulse Rate [4] 51 L Pulse Rate [5] 53 L Pulse Rate [6] 60 Pulse Rate [7] 43 L Pulse Rate [8] 45 L Pulse Rate [9] 39 L Respiratory Rate 18 16 Respiratory Rate [1 (Initial Baseline)] 22 H Respiratory Rate [10] 20 H Respiratory Rate [11] 22 H Respiratory Rate [12] 20 H Respiratory Rate [13] 22 H Respiratory Rate [14] 30 H Respiratory Rate [15] 28 H Respiratory Rate [16] 20 H Respiratory Rate [2] 24 H Respiratory Rate [3] 28 H Respiratory Rate [4] 28 H Respiratory Rate [5] 27 H Respiratory Rate [6] 26 H Respiratory Rate [7] 28 H Respiratory Rate [8] 24 H Respiratory Rate [9] 24 H Respiratory Effort Respiratory Depth Respiratory Pattern Blood Pressure 134/64 H 131/46 H Blood Pressure [1 (Initial Baseline)] 131/46 H Blood Pressure [10] 114/57 L Blood Pressure [11] 114/57 L Blood Pressure [12] 114/57 L Blood Pressure [13] 114/57 L Blood Pressure [14] 113/57 L Blood Pressure [15] 109/53 L Blood Pressure [16] 109/53 L Blood Pressure [2] 131/46 H Blood Pressure [3] 131/46 H Blood Pressure [4] 132/50 H Blood Pressure [5] 132/50 H Blood Pressure [6] 109/73 Blood Pressure [7] 109/73 Blood Pressure [8] 109/73 Blood Pressure [9] 109/73 Blood Pressure Mean 74 Pulse Ox 92 92 Oxygen Delivery Method Nasal Cannula Nasal Cannula Oxygen Delivery Method [1 (Initial Baseline)] Nasal Cannula Oxygen Delivery Method [10] Non-Rebreather Oxygen Delivery Method [11] Non-Rebreather Oxygen Delivery Method [12] Non-Rebreather Oxygen Delivery Method [13] Non-Rebreather Oxygen Delivery Method [14] Non-Rebreather Oxygen Delivery Method [15] Non-Rebreather Oxygen Delivery Method [16] Non-Rebreather Oxygen Delivery Method [2] Nasal Cannula Oxygen Delivery Method [3] Nasal Cannula Oxygen Delivery Method [4] Nasal Cannula Oxygen Delivery Method [5] Nasal Cannula Oxygen Delivery Method [6] Nasal Cannula Oxygen Delivery Method [7] Non-Rebreather Oxygen Delivery Method [8] Non-Rebreather Oxygen Delivery Method [9] Non-Rebreather Oxygen Flow Rate (L/min) 6 6 Oxygen Flow Rate (L/min) [1 (Initial Baseline)] 6 Oxygen Flow Rate (L/min) [10] 15 Oxygen Flow Rate (L/min) [11] 15 Oxygen Flow Rate (L/min) [12] 15 Oxygen Flow Rate (L/min) [13] 15 Oxygen Flow Rate (L/min) [14] 15 Oxygen Flow Rate (L/min) [15] 15 Oxygen Flow Rate (L/min) [16] 15 Oxygen Flow Rate (L/min) [2] 6 Oxygen Flow Rate (L/min) [3] 6 Oxygen Flow Rate (L/min) [4] 6 Oxygen Flow Rate (L/min) [5] 6 Oxygen Flow Rate (L/min) [6] 6 Oxygen Flow Rate (L/min) [7] 15 Oxygen Flow Rate (L/min) [8] 15 Oxygen Flow Rate (L/min) [9] 15 11/12/23 12:58 11/12/23 12:00 11/12/23 13:00 Temperature Temperature Source Pulse Rate 46 L 48 L Pulse Rate [1 (Initial Baseline)] Pulse Rate [10] Pulse Rate [11] Pulse Rate [12] Pulse Rate [13] Pulse Rate [14] Pulse Rate [15] Pulse Rate [16] Pulse Rate [2] Pulse Rate [3] Pulse Rate [4] Pulse Rate [5] Pulse Rate [6] Pulse Rate [7] Pulse Rate [8] Pulse Rate [9] Respiratory Rate 22 H 20 H Respiratory Rate [1 (Initial Baseline)] Respiratory Rate [10] Respiratory Rate [11] Respiratory Rate [12] Respiratory Rate [13] Respiratory Rate [14] Respiratory Rate [15] Respiratory Rate [16] Respiratory Rate [2] Respiratory Rate [3] Respiratory Rate [4] Respiratory Rate [5] Respiratory Rate [6] Respiratory Rate [7] Respiratory Rate [8] Respiratory Rate [9] Respiratory Effort Respiratory Depth Respiratory Pattern Blood Pressure 127/60 H 119/63 Blood Pressure [1 (Initial Baseline)] Blood Pressure [10] Blood Pressure [11] Blood Pressure [12] Blood Pressure [13] Blood Pressure [14] Blood Pressure [15] Blood Pressure [16] Blood Pressure [2] Blood Pressure [3] Blood Pressure [4] Blood Pressure [5] Blood Pressure [6] Blood Pressure [7] Blood Pressure [8] Blood Pressure [9] Blood Pressure Mean 82 81 Pulse Ox 97 96 Oxygen Delivery Method Non-Rebreather Non-Rebreather Non-Rebreather Oxygen Delivery Method [1 (Initial Baseline)] Oxygen Delivery Method [10] Oxygen Delivery Method [11] Oxygen Delivery Method [12] Oxygen Delivery Method [13] Oxygen Delivery Method [14] Oxygen Delivery Method [15] Oxygen Delivery Method [16] Oxygen Delivery Method [2] Oxygen Delivery Method [3] Oxygen Delivery Method [4] Oxygen Delivery Method [5] Oxygen Delivery Method [6] Oxygen Delivery Method [7] Oxygen Delivery Method [8] Oxygen Delivery Method [9] Oxygen Flow Rate (L/min) 15 15 15 Oxygen Flow Rate (L/min) [1 (Initial Baseline)] Oxygen Flow Rate (L/min) [10] Oxygen Flow Rate (L/min) [11] Oxygen Flow Rate (L/min) [12] Oxygen Flow Rate (L/min) [13] Oxygen Flow Rate (L/min) [14] Oxygen Flow Rate (L/min) [15] Oxygen Flow Rate (L/min) [16] Oxygen Flow Rate (L/min) [2] Oxygen Flow Rate (L/min) [3] Oxygen Flow Rate (L/min) [4] Oxygen Flow Rate (L/min) [5] Oxygen Flow Rate (L/min) [6] Oxygen Flow Rate (L/min) [7] Oxygen Flow Rate (L/min) [8] Oxygen Flow Rate (L/min) [9] 11/12/23 13:00 11/12/23 13:12 11/12/23 13:40 Temperature 98 F Temperature Source Pulse Rate 49 L Pulse Rate [1 (Initial Baseline)] Pulse Rate [10] Pulse Rate [11] Pulse Rate [12] Pulse Rate [13] Pulse Rate [14] Pulse Rate [15] Pulse Rate [16] Pulse Rate [2] Pulse Rate [3] Pulse Rate [4] Pulse Rate [5] Pulse Rate [6] Pulse Rate [7] Pulse Rate [8] Pulse Rate [9] Respiratory Rate 20 H Respiratory Rate [1 (Initial Baseline)] Respiratory Rate [10] Respiratory Rate [11] Respiratory Rate [12] Respiratory Rate [13] Respiratory Rate [14] Respiratory Rate [15] Respiratory Rate [16] Respiratory Rate [2] Respiratory Rate [3] Respiratory Rate [4] Respiratory Rate [5] Respiratory Rate [6] Respiratory Rate [7] Respiratory Rate [8] Respiratory Rate [9] Respiratory Effort Respiratory Depth Respiratory Pattern Blood Pressure 126/56 H Blood Pressure [1 (Initial Baseline)] Blood Pressure [10] Blood Pressure [11] Blood Pressure [12] Blood Pressure [13] Blood Pressure [14] Blood Pressure [15] Blood Pressure [16] Blood Pressure [2] Blood Pressure [3] Blood Pressure [4] Blood Pressure [5] Blood Pressure [6] Blood Pressure [7] Blood Pressure [8] Blood Pressure [9] Blood Pressure Mean 79 Pulse Ox 97 Oxygen Delivery Method Non-Rebreather Non-Rebreather Oxygen Delivery Method [1 (Initial Baseline)] Oxygen Delivery Method [10] Oxygen Delivery Method [11] Oxygen Delivery Method [12] Oxygen Delivery Method [13] Oxygen Delivery Method [14] Oxygen Delivery Method [15] Oxygen Delivery Method [16] Oxygen Delivery Method [2] Oxygen Delivery Method [3] Oxygen Delivery Method [4] Oxygen Delivery Method [5] Oxygen Delivery Method [6] Oxygen Delivery Method [7] Oxygen Delivery Method [8] Oxygen Delivery Method [9] Oxygen Flow Rate (L/min) Oxygen Flow Rate (L/min) [1 (Initial Baseline)] Oxygen Flow Rate (L/min) [10] Oxygen Flow Rate (L/min) [11] Oxygen Flow Rate (L/min) [12] Oxygen Flow Rate (L/min) [13] Oxygen Flow Rate (L/min) [14] Oxygen Flow Rate (L/min) [15] Oxygen Flow Rate (L/min) [16] Oxygen Flow Rate (L/min) [2] Oxygen Flow Rate (L/min) [3] Oxygen Flow Rate (L/min) [4] Oxygen Flow Rate (L/min) [5] Oxygen Flow Rate (L/min) [6] Oxygen Flow Rate (L/min) [7] Oxygen Flow Rate (L/min) [8] Oxygen Flow Rate (L/min) [9] Positive well nourished and well developed General Appearance ED: well developed HEENT Reports normocephalic and moist mucous membranes HEENT Narrative: There is an abrasion noted in the right lateral forehead. Glasses appear intact. Eyes PERRL and EOMs intact bilaterally Neck full ROM, no lymphadenopathy, supple and no JVD Neck Narrative: Nontender neck exam Chest Wall Chest Narrative: There is abrasions and contusions noted the upper back extending across the clavicle down onto the anterior right chest. There is tenderness along the same line. Resp normal respiratory effort and clear to auscultation bilaterally GI GI Narrative: Mild tenderness to palpation across the right side of his abdomen abdomen still soft. Auscultation: normoactive bowel sounds Palpation: soft and tender; Negative for guarding or rebound tenderness present Back/Spine normal ROM Back/Spine Narrative: See chest exam Extremity Extremity Narrative: There is tire tread compression [place] across the anterior medial aspect of the right thigh knee and leg. Neurovascular intact distal. General Extremety ED: Negative for edema General Extremity: Negative for edema Neuro oriented x3 and CN's II-XII intact bilaterally Sensorium / Orientation: alert Motor Exam: strength 5/5 throughout Psych mental status grossly normal Mood & Affect: Negative for depressed or tearful Skin no rashes or lesions noted Skin Narrative: Pallor Wounds: wounds noted PROC Procedures Procedural Sedation 1 (Initial Baseline): Consent Signed: Yes Any Problems With Anesthesia: No You/Your family experience fever (hyperthermia) w/anesthesia: No Sedation medication: Propofol Dose: 175 Total Moderate Sedation Units: 52 Maliampati Score: Class II ASA Classification: I MDM MDM MDM Narrative Medical decision making narrative: Patient was brought to the resuscitation room #2. EKG demonstrates a Mobitz type I heart block. My independent interpretation of the chest x-ray is an acute fracture of the lateral right rib. I do not see an obvious pneumothorax. My independent interpretation of the plain films of the pelvis is no acute fracture. White count returns at 6.1 with hemoglobin of 10.6 platelet count of 289 INR 1.1 PTT 22.3. BMP with a creatinine 0.94 and a glucose of 135. LFTs with elevation of transaminases AST is 66 ALT is 69 total CK is 390 troponin is 14 alcohol negative lipase 19. Patient was taken to the CT scanner. CT of the head and cervical spine demonstrates no acute fracture or hemorrhage. CT of the chest abdomen pelvis with IV contrast demonstrates a pneumothorax on the right with approximately 5 rib fractures. I do not see any intra-abdominal pathology. Patient received morphine and Zofran. I spoke with the patient and his regarding the pneumothorax and rib fractures. It is our recommendation the chest tube be placed. Patient/ provided informed written consent for procedural sedation using propofol for the placement of the chest tube. Patient was placed on the monitor for sedation. He received 0.5 mg propofol bolus followed by 0.25 mg aliquots to achieve adequate sedation. The right side of the chest was prepped with Betadine and allowed to dry. Sterile field was set up. A rib space was identified just inferior to the nipple line in the anterior mid axillary line. 1% lidocaine was used to anesthetize the skin down to the pleura. A 2.5 cm linear incision was made with 11 blade. Blunt dissection down to the pleura. Using a pair of curved hemostats the pleural space was entered after rolling over the superior aspect of the rib. A 36 Sinhala chest tube was then placed and sutured into place and attached to -20 wall suction. My independent interpretation of the post chest tube placement chest x-ray is inadequate cephalad placement of the chest tube. Patient was resedated and the chest tube was repositioned posterior and superior. My independent trepidation of the second postplacement chest x-ray is adequate placement near complete resolution of pneumothorax. There is developing apparent pulmonary contusion. Approximately 70 cc of blood in the water chamber. During sedation the patient would have occasional further bradycardia into the 30s. He did have episodes of hypoxia but not apnea. He was allowed to recover. Post procedure received fentanyl and then Dilaudid which eventually improved his pain. I had previously discussed with the patient and his the need for to transfer him to trauma center. Because he is gotten care through the [facility] they asked for [facility] where he was excepted to the emergency department by Dr. Sanchez. History & Record Review Discussion w/independent historian: EMS personnel and Patient Lab Data Attestation: I reviewed the patient's lab results. Labs: Laboratory Results - last 24 hr 11/12/23 11:09 WBC 6.1 RBC 3.46 L Hgb 10.6 L Hct 31.8 L MCV 91.9 MCH 30.6 MCHC 33.3 RDW Std Deviation 42.8 RDW Coeff of Dori 13.0 Plt Count 289 MPV 9.4 Immature Gran % (Auto) 1.500 H Neut % (Auto) 51.9 Lymph % (Auto) 31.2 [place] % (Auto) 10.0 Eos % (Auto) 4.6 Baso % (Auto) 0.8 Absolute Neuts (auto) 3.2 Absolute Lymphs (auto) 1.91 Nucleated RBC % 0 PT 13.8 INR 1.1 APTT 22.3 L Sodium 141 Potassium 3.9 Chloride 110 H Carbon Dioxide 24.0 Anion Gap 7 BUN 25 H Creatinine 0.94 Estim Creat Clear Calc 77.75 Est GFR (MDRD) Af Amer 100 Est GFR (MDRD) Non-Af 82 BUN/Creatinine Ratio 26.7 H Glucose 135 H Calcium 9.1 Total Bilirubin 0.60 Direct Bilirubin 0.11 AST 66 H ALT 69 H Alkaline Phosphatase 59 Total Creatine Kinase 390 H Troponin I High Sens 14 Total Protein 6.4 Albumin 3.5 Globulin 2.9 Lipase 19 Ethyl Alcohol < 3.0 Radiography Diagnostic Testing: Clinical Impression(s) from Imaging Studies Chest X-Ray 11/12/23 11:00 IMPRESSION: No radiographic evidence of acute cardiopulmonary disease. Electronically Signed: Nigel Rivera MD at 12:01 EDT , Brain CT 11/12/23 11:02 IMPRESSION: No acute intracranial process. Electronically Signed: Nigel Rivera MD at 12:06 EDT , Cervical Spine CT 11/12/23 11:02 IMPRESSION: No evidence of acute cervical spinal fracture or spondylolisthesis. Electronically Signed: Nigel Rivera MD at 12:10 EDT , Chest/Abdomen/Pelvis CT 11/12/23 11:02 IMPRESSION: 1. Fractures of the anterior and lateral right fourth, fifth, sixth and seventh ribs. 2. Small anterior and basilar right pneumothorax. 3. No evidence of solid organ injury, free air or free fluid in the abdomen. 4. Infrarenal abdominal aortic aneurysm for which follow-up examination in 6 months and vascular surgery consultation is recommended. 5. Diverticulosis without evidence of acute diverticulitis. Electronically Signed: Nigel Rivera MD at 12:25 EDT , Pelvis X-Ray 11/12/23 11:02 IMPRESSION: No evidence of displaced pelvic or hip fracture. Electronically Signed: Nigel Rivera MD at 12:00 EDT , Chest X-Ray 11/12/23 12:30 IMPRESSION: Status post right chest tube placement. Hypoventilatory changes in the right lower lung. Electronically Signed: Nigel Rivera MD at 13:30 EDT , Chest X-Ray 11/12/23 12:53 IMPRESSION: Right chest tube with the tip in the right chest apex. Prominent markings in the right lower lung could represent mild pulmonary contusion. Questionable small tiny right apical pneumothorax. Fractured right ribs. Electronically Signed: Nigel Rivera MD at 13:30 EDT , EKG Initial EKG: Attestation: I personally reviewed and interpreted this EKG as follows: Comments: EKG appears to be a sinus rhythm with second-degree AV block (Mobitz 1) Prior: Changed (Previous EKG dated 08 May 2021 with sinus rhythm with a first-degree AV block) Critical Care Time Critical Care Time: Yes Critical care time (excluding procedures): 30-74 minutes (35 min), Including time spent:, Discussing w/Patient &/or Family/Pulmonologist Intensivist, Discussing w/Consultants, Arranging Admission or Transfer and Performing Direct Patient Care at Bedside Discharge Plan Triage Chief Complaint: Trauma ED Provider: Rudy Flynn Dx/Rx/DC Orders Clinical Impression: Multiple fractures of ribs of right side, Pneumothorax, AV block, Mobitz 1, Crush injury Prescriptions: No Action potassium 99 mg Tablet 99 mg PO DAILY ascorbic acid (vitamin C) [Vitamin C] 500 mg Tablet 500 mg PO DAILY omega 1-uwq-ulb-fish oil [Fish Oil] 1,200 (144-216) mg Capsule 1,200 cap PO DAILY Primary Care Provider: Giovani Vargas Chi Referrals: Giovani Vargas Chi, MD [Primary Care Provider] - Disposition Disposition: Acute Care Hospital Discharge Location: [facility] Discharge Date/Time: 11/12/23 13:42
[2023-11-12 11:15] LABS: Absolute Lymphocyte Count 1.91 X10^3/uL (0.83-4.51); Absolute Neutrophil Count 3.2 X10^3/uL (2.0-7.7); Basophil# 0.05 X10^3/uL; Basophil% 0.8 % (0-1); Eosinophil# 0.28 X10^3/uL; Eosinophils% 4.6 % (0-5); Hematocrit 31.8 % (40-54); Hemoglobin 10.6 g/dL (13.0-16.5); Lymphocyte # 1.91 X10^3/ul (0.83-4.51); Lymphocyte % 31.2 % (19-41); Mean Corp Hgb Conc 33.3 g/dL (32-36); Mean Corpuscular Hgb 30.6 pg (27.0-32.0); Mean Corpuscular Volume 91.9 fL (80-94); Mean Platelet Vol. 9.4 fl (6.2-12.0); Monocyte# 0.61 X10^3/uL; NRBC Flagged by Analyzer 0 % (0-5); Neutrophil # 3.19 X10^3/uL (2.7-7.7); Neutrophil % 51.9 % (47-70); Platelet Count 289 K/mm3 (150-450); RBC Distribution Width SD 42.8 fl (35.1-43.9); Red Blood Count 3.46 M/mm3 (4.6-6.2); White Blood Count 6.1 K/mm3 (4.4-11.0)
[2023-11-12 11:24] LABS: International Normalized Ratio 1.1; Prothrombin Time (Protime)PT. 13.8 SECONDS (11.7-14.9)
[2023-11-12 11:25] LABS: Partial Thromboplast Time 22.3 Seconds (24.1-36.2)
[2023-11-12 11:31] LABS: Alcohol, Blood (Medical)-Serum < 3.0 mg/dL
[2023-11-12 11:40] LABS: AST(SGOT) 66 U/L (15-37); Alanine Aminotransfer ALT/SGPT 69 U/L (16-61); Albumin, Serum 3.5 g/dL (3.2-5.0); Alkaline Phosphatase 59 U/L (45-117); Anion Gap 7 (5-15); BUN 25 mg/dL (7-18); BUN/Creat Ratio 26.7 RATIO (10-20); Bilirubin, Direct 0.11 mg/dL (0.00-0.30); CPK Total, Creatine Kinase 390 U/L (39-308); Calcium,Total 9.1 mg/dL (8.5-10.1); Chloride 110 mmol/L (98-107); Creatinine, Serum 0.94 mg/dL (0.70-1.30); EST Glomerular Filtration Rate 82 mL/min (>60); Est Glom Filt Rate - Afr Amer 100 mL/min (>60); Estimated Creatinine Clearance 77.75 ml/min; Globulin 2.9 g/dL (2.2-4.2); Glucose 135 mg/dL (74-106); Potassium 3.9 mmol/L (3.5-5.1); Protein, Total 6.4 g/dL (6.4-8.2); Sodium Level 141 mmol/L (136-145); Troponin-I HS 14 pg/mL (3.0-78.0)
[2023-11-12] MEDS: Propofol 200 MG/20 ML Vial IV BOLUS (11:40)
--- NOTE | 2023-11-12 12:10 | NURSING ---
CALLED [facility], ETA IS 75 TO 90 MIN
--- NOTE | 2023-11-12 12:30 | RAD_ITS ---
INDICATION: chest tube EXAMINATION/TECHNIQUE: X-RAY - XR Chest 1 View COMPARISON: Previous of the same date done earlier. FINDINGS: LINES/DEVICES: New right chest tube with the tip in the right lower chest. LUNGS: Hypoventilatory and mild increase markings in the right lower lung. No definite pneumothorax or pleural effusions. MEDIASTINUM AND CARDIOVASCULAR STRUCTURES: Cardiac silhouette not enlarged. Central airways and mediastinal contour are unremarkable. BONES AND SOFT TISSUES: The fractured right ribs are better seen on the CT scan. RAD/Chest 1 View (Portable) IMPRESSION: Status post right chest tube placement. Hypoventilatory changes in the right lower lung. Electronically Signed: Nigel Rivera MD at 13:30 EDT ,
--- NOTE | 2023-11-12 12:53 | RAD_ITS ---
INDICATION: chest tube EXAMINATION/TECHNIQUE: X-RAY - XR Chest 1 View COMPARISON: Prior study dated: 11/12/2023, 12:27 AM. FINDINGS: LINES/DEVICES: Right-sided chest tube has been adjusted with its tip now in the right chest apex. LUNGS: Prominent markings or early pulmonary contusion in the right lung. Possible tiny right apical pneumothorax. The left lung is essentially clear. MEDIASTINUM AND CARDIOVASCULAR STRUCTURES: Cardiac silhouette not enlarged. Central airways and mediastinal contour are unremarkable. BONES AND SOFT TISSUES: Fractures of the lateral aspect of right ribs are partially visualized. RAD/Chest 1 View (Portable) IMPRESSION: Right chest tube with the tip in the right chest apex. Prominent markings in the right lower lung could represent mild pulmonary contusion. Questionable small tiny right apical pneumothorax. Fractured right ribs. Electronically Signed: Nigel Rivera MD at 13:30 EDT ,
[2023-11-12] MEDS: fentaNYL 100 MCG/2 ML Ampul 50 MCG IV (12:55)
[2023-11-12] MEDS: HYDROmorphone 1 MG/ML Syringe IV (13:14)
[2023-11-12 13:30] LABS: Lipase 19 U/L (13-75)
== END 2023-11-12 13:42 | disposition short-term general hospital (02) ==
PROVIDERS: Emergency Provider Emergency Medicine; PCP Family Medicine Geriatric Medicine; Visit Provider Emergency Medicine
DX: S22.41XA Multiple fractures of ribs, right side, initial encounter for closed fracture (principal); S27.0XXA Traumatic pneumothorax, initial encounter; I44.1 Atrioventricular block, second degree; V99.XXXA Unspecified transport accident, initial encounter; Y93.89 Activity, other specified
CPT/HCPCS: 32551; 70450; 71045; 71260; 72125; 72170; 74177; 80048; 80076; 80320; 82550; 83690; 84484; 85025; 85610; 85730; 93005; 96361; 96374; 96375; 99152; 99153; 99285; J7030; Q9967; A4216; G0480; J2405

== ENCOUNTER → 2023-12-03 | Outpatient (CLI) | payer MEDICARE, SELFPAY ==
--- NOTE | 2023-12-03 16:00 | RAD_ITS ---
INDICATION: PNEUMOTHORAX EXAMINATION/TECHNIQUE: X-RAY - XR Chest 2 Views COMPARISON: 11/12/2023 FINDINGS: LINES/DEVICES: Device overlying the left chest. Right chest tube was removed since the prior. LUNGS: Reticular opacities in the right lung base. Small right pleural effusion. No consolidation. No pneumothorax. MEDIASTINUM: Aorta is atherosclerotic and tortuous. CARDIAC [place]: Not enlarged. BONES AND SOFT TISSUES: No acute abnormalities. Right rib fractures not as well-visualized as on the prior. RAD/Chest PA and Lateral IMPRESSION: Small right pleural effusion. No pneumothorax. Subsegmental atelectasis versus scarring in the right lung base. Electronically Signed: Coral Ramesh MD at 8:13 EDT ,
[2023-12-03 16:46] LABS: Absolute Lymphocyte Count 0.94 X10^3/uL (0.83-4.51); Absolute Neutrophil Count 3.3 X10^3/uL (2.0-7.7); Basophil# 0.05 X10^3/uL; Eosinophil# 0.17 X10^3/uL; Eosinophils% 3.4 % (0-5); Hematocrit 29.3 % (40-54); Hemoglobin 9.3 g/dL (13.0-16.5); Lymphocyte # 0.94 X10^3/ul (0.83-4.51); Lymphocyte % 18.7 % (19-41); Mean Corp Hgb Conc 31.7 g/dL (32-36); Mean Corpuscular Hgb 30.7 pg (27.0-32.0); Mean Corpuscular Volume 96.7 fL (80-94); Mean Platelet Vol. 9.1 fl (6.2-12.0); Monocyte# 0.56 X10^3/uL; Monocyte% 11.1 % (0-10); NRBC Flagged by Analyzer 0 % (0-5); Neutrophil # 3.29 X10^3/uL (2.7-7.7); Neutrophil % 65.2 % (47-70); Platelet Count 412 K/mm3 (150-450); RBC Distribution Width CV 14.9 % (11.6-14.6); RBC Distribution Width SD 52.1 fl (35.1-43.9); Red Blood Count 3.03 M/mm3 (4.6-6.2)
[2023-12-03 17:18] LABS: Anion Gap 3 (5-15); BUN 15 mg/dL (7-18); Calcium,Total 9.2 mg/dL (8.5-10.1); Chloride 108 mmol/L (98-107); Creatinine, Serum 0.71 mg/dL (0.70-1.30); EST Glomerular Filtration Rate 113 mL/min (>60); Est Glom Filt Rate - Afr Amer 136 mL/min (>60); Glucose 94 mg/dL (74-106); Potassium 4.3 mmol/L (3.5-5.1); Sodium Level 137 mmol/L (136-145)
== END | disposition home or self-care (01) ==
LOC: RAD 15:51
PROVIDERS: PCP Family Medicine Geriatric Medicine; Referring Provider Family Medicine Geriatric Medicine; Visit Provider Family Medicine Geriatric Medicine
DX: J93.9 Pneumothorax, unspecified (principal); I10 Essential (primary) hypertension
CPT/HCPCS: 36415; 71046; 80048; 85025

== ENCOUNTER → 2024-04-13 | Outpatient (CLI) | payer MEDICARE, SELFPAY ==
[2024-04-13 10:38] LABS: Absolute Lymphocyte Count 0.92 X10^3/uL (0.83-4.51); Absolute Neutrophil Count 2.3 X10^3/uL (2.0-7.7); Basophil# 0.03 X10^3/uL; Basophil% 0.8 % (0-1); Eosinophils% 7.5 % (0-5); Hematocrit 34.3 % (40-54); Lymphocyte # 0.92 X10^3/ul (0.83-4.51); Lymphocyte % 23.1 % (19-41); Mean Corp Hgb Conc 32.1 g/dL (32-36); Mean Corpuscular Hgb 30.4 pg (27.0-32.0); Mean Corpuscular Volume 94.8 fL (80-94); Mean Platelet Vol. 10.3 fl (6.2-12.0); Monocyte# 0.45 X10^3/uL; Monocyte% 11.3 % (0-10); NRBC Flagged by Analyzer 0 % (0-5); Neutrophil # 2.27 X10^3/uL (2.7-7.7); Neutrophil % 56.8 % (47-70); Platelet Count 216 K/mm3 (150-450); RBC Distribution Width CV 13.7 % (11.6-14.6); RBC Distribution Width SD 47.8 fl (35.1-43.9); Red Blood Count 3.62 M/mm3 (4.6-6.2)
[2024-04-13 11:10] LABS: Vitamin D,25 Hydroxy 38.6 ng/mL
[2024-04-13 11:34] LABS: ALB/GLOB Ratio 1.2 RATIO (0.9-2.4); AST(SGOT) 19 U/L (15-37); Alanine Aminotransfer ALT/SGPT 18 U/L (16-61); Albumin, Serum 3.5 g/dL (3.2-5.0); Alkaline Phosphatase 60 U/L (45-117); Anion Gap 5 (5-15); BUN 20 mg/dL (7-18); BUN/Creat Ratio 25.4 RATIO (10-20); Calcium,Total 9.2 mg/dL (8.5-10.1); Chloride 108 mmol/L (98-107); Cholesterol 197 mg/dL (200); Creatinine, Serum 0.79 mg/dL (0.70-1.30); EST Glomerular Filtration Rate 100 mL/min (>60); Est Glom Filt Rate - Afr Amer 122 mL/min (>60); Globulin 2.9 g/dL (2.2-4.2); Glucose 149 mg/dL (74-106); High Density Lipoprotein 47 mg/dL; Potassium 3.9 mmol/L (3.5-5.1); Protein, Total 6.4 g/dL (6.4-8.2); Sodium Level 140 mmol/L (136-145); Triglycerides 77 mg/dL; Very Low Density Lipoprotein 15 mg/dL (5-40)
== END | disposition home or self-care (01) ==
LOC: LAB 09:51
PROVIDERS: PCP Family Medicine Geriatric Medicine; Referring Provider Family Medicine Geriatric Medicine; Visit Provider Family Medicine Geriatric Medicine
DX: I10 Essential (primary) hypertension (principal); E55.9 Vitamin D deficiency, unspecified; E78.5 Hyperlipidemia, unspecified
CPT/HCPCS: 36415; 80053; 80061; 82306; 84443; 85025

== ENCOUNTER → 2024-10-05 | Outpatient (CLI) | payer MEDICARE, SELFPAY ==
[2024-10-05 09:47] LABS: Absolute Lymphocyte Count 1.04 X10^3/uL (0.83-4.51); Absolute Neutrophil Count 3.4 X10^3/uL (2.0-7.7); Basophil# 0.04 X10^3/uL; Basophil% 0.8 % (0-1); Eosinophil# 0.31 X10^3/uL; Eosinophils% 5.8 % (0-5); Hematocrit 37.5 % (40-54); Hemoglobin 12.3 g/dL (13.0-16.5); Lymphocyte # 1.04 X10^3/ul (0.83-4.51); Lymphocyte % 19.5 % (19-41); Mean Corp Hgb Conc 32.8 g/dL (32-36); Mean Corpuscular Volume 94.5 fL (80-94); Mean Platelet Vol. 10.3 fl (6.2-12.0); Monocyte# 0.52 X10^3/uL; Monocyte% 9.8 % (0-10); NRBC Flagged by Analyzer 0 % (0-5); Neutrophil # 3.39 X10^3/uL (2.7-7.7); Neutrophil % 63.7 % (47-70); Platelet Count 221 K/mm3 (150-450); RBC Distribution Width CV 13.3 % (11.6-14.6); RBC Distribution Width SD 45.8 fl (35.1-43.9); Red Blood Count 3.97 M/mm3 (4.6-6.2); White Blood Count 5.3 K/mm3 (4.4-11.0)
[2024-10-05 11:08] LABS: ALB/GLOB Ratio 1.9 RATIO (0.9-2.4); AST(SGOT) 24 U/L (<=37); Alanine Aminotransfer ALT/SGPT 18 U/L (<=46); Albumin, Serum 4.3 g/dL (3.4-4.8); Alkaline Phosphatase 62 U/L (40-129); Anion Gap 12 (5-15); BUN 20 mg/dL (4-19); BUN/Creat Ratio 24.7 RATIO (10-20); Calcium,Total 9.3 mg/dL (7.6-11.0); Carbon Dioxide 22.8 mmol/L (21.0-32.0); Chloride 107 mmol/L (98-108); Creatinine, Serum 0.81 mg/dL (0.70-1.20); EST Glomerular Filtration Rate 89 (>60); Globulin 2.3 g/dL (2.2-4.2); Glucose 136 mg/dL (70-99); Potassium 4.4 mmol/L (3.3-5.1); Protein, Total 6.6 g/dL (5.9-8.4); Sodium Level 142 mmol/L (133-145); Total Bilirubin 0.46 mg/dL (0.00-1.30)
[2024-10-05 11:10] LABS: Vitamin D,25 Hydroxy 21.8 ng/mL (30-100)
[2024-10-05 14:36] LABS: Hemoglobin A1c 6.5 % (<=5.6)
== END | disposition home or self-care (01) ==
LOC: POLAB3 09:34
PROVIDERS: PCP Family Medicine Geriatric Medicine; Visit Provider Family Medicine Geriatric Medicine
DX: I10 Essential (primary) hypertension (principal); E78.5 Hyperlipidemia, unspecified; E55.9 Vitamin D deficiency, unspecified
CPT/HCPCS: 36415; 80053; 82306; 83036; 84443; 85025

== ENCOUNTER → 2024-12-11 | Outpatient (CLI) | payer MEDICARE, SELFPAY ==
[2024-12-11 13:22] LABS: Anion Gap 12 (5-15); BUN 28 mg/dL (4-19); BUN/Creat Ratio 39.3 RATIO (10-20); Calcium,Total 9.6 mg/dL (7.6-11.0); Carbon Dioxide 21.3 mmol/L (21.0-32.0); Chloride 105 mmol/L (98-108); Creatinine, Serum 0.72 mg/dL (0.70-1.20); EST Glomerular Filtration Rate 92 (>60); Glucose 128 mg/dL (70-99); Potassium 4.3 mmol/L (3.3-5.1); Sodium Level 139 mmol/L (133-145)
== END | disposition home or self-care (01) ==
LOC: LAB 11:20
PROVIDERS: PCP Family Medicine Geriatric Medicine; Referring Provider Physician Assistant Medical; Visit Provider Physician Assistant Medical
DX: I25.10 Atherosclerotic heart disease of native coronary artery without angina pectoris (principal); I10 Essential (primary) hypertension
CPT/HCPCS: 36415; 80048

== ENCOUNTER → 2024-12-23 | Outpatient (CLI) | payer MEDICARE, SELFPAY ==
--- NOTE | 2024-12-23 06:51 | ECHOD_ITS ---
Reason For Study Reason For Study: CORONARY ARTERY DISEASE Procedure This was a 2D Doppler, Color Flow transthoracic echocardiogram. Exam performed in department. Left Ventricle Normal size and thickness. The LV systolic function is normal. EF is 65 %. Diastolic function is indeterminate. Right Ventricle Normal right ventricle. Atria The left and right atria are normal. Mitral Valve Moderate MAC. Mild mitral valve regurgitation. Tricuspid Valve Mild tricuspid valve insufficiency. 44. Aortic Valve Aortic valve sclerosis without stenosis. Pulmonic Valve The pulmonic valve is not well visualized. Great Vessels Normal sized aortic root. Pericardium/Pleural No pericardial effusion. MMode/2D Measurements & Calculations LVIDd: 4.4 cm IVSd: 1.1 cm LVOT diam: 2.1 cm LVIDs: 3.0 cm LVPWd: 1.1 cm LVOT area: 3.6 cm2 RVDd: 4.8 cm FS: 32.3 % asc Aorta Diam: 3.7 cm LAV(MOD-bp): 52.1 ml LVAd ap4: 33.9 cm2 LAV(MOD-bp) Indexed: 24.7 ml/m2 LVLd ap4: 8.5 cm LAV(MOD-sp2): 53.9 ml EDV(MOD-sp4): 108.7 ml LAV(MOD-sp4): 40.6 ml EDV(sp4-el): 114.4 ml LVAs ap4: 16.5 cm2 LVLs ap4: 6.5 cm ESV(MOD-sp4): 35.8 ml ESV(sp4-el): 35.4 ml EF(MOD-sp4): 67.1 % EF(sp4-el): 69.0 % LVAd ap2: 32.7 cm2 SV(MOD-sp4): 72.9 ml SV(MOD-sp2): 53.0 ml LVLd ap2: 9.4 cm SI(MOD-sp4): 34.6 ml/m2 SI(MOD-sp2): 25.1 ml/m2 EDV(MOD-sp2): 92.2 ml EDV(sp2-el): 97.1 ml LVAs ap2: 19.0 cm2 LVLs ap2: 7.5 cm ESV(MOD-sp2): 39.2 ml ESV(sp2-el): 40.9 ml EF(MOD-sp2): 57.5 % SV(sp4-el): 78.9 ml Ao sinus diam: 3.[address] Junction: 2.6 cm LA dimension(2D): 4.3 cm LA A4 area: 15.4 cm2 RA A4 area: 12.4 cm2 TAPSE: 2.2 cm Time Measurements MV dec time: 0.32 sec Doppler Measurements & Calculations MV E max dennys: 91.5 cm/sec Lat Peak E' Dennys: 6.1 cm/sec Med Peak E' Dennys: 4.8 cm/sec MV A max dennys: 81.3 cm/sec E/E' lat: 15.1 E/E' med: 19.2 MV E/A: 1.1 MV dec slope: 286.5 cm/sec2 Ao V2 max: 146.0 cm/sec LV V1 max: 95.8 cm/sec Ao max P.5 mmHg LV V1 max P.7 mmHg Ao V2 mean: 105.1 cm/sec LV V1 mean P.2 mmHg Ao mean P.7 mmHg LV V1 mean: 70.6 cm/sec Ao V2 VTI: 38.8 cm LV V1 VTI: 23.7 cm AV (velocity ratio): 0.61 KATIA(I,D): 2.2 cm2 KATIA(V,D): 2.4 cm2 SV(LVOT): 85.0 ml PA V2 max: 73.2 cm/sec TR max dennys: 311.3 cm/sec TR max P.8 mmHg ECHO/Echo Complete Interpretation Summary The LV systolic function is normal. EF is 65 %. Diastolic function is indeterminate. Moderate mitral valve annular calcification. Mild mitral valve regurgitation. Mild tricuspid valve insufficiency. 44 Aortic valve sclerosis without stenosis. Ordering Physician: Emir Jensen Referring Physician: Giovani Vargas Chi Performed By: Holly Corado, BEV
--- NOTE | 2024-12-23 16:08 | STRESSREP_ITS ---
Stress Test Report Date: 12/23/2024 Procedure: Pharmacologic stress nuclear imaging study Indications: Sick sinus syndrome/coronary artery disease Consent: Per the patient Procedure: The patient underwent pharmacologic (Regadenoson 0.4mg ) evaluation with a peak heart rate of 67 beats per minute (48%predicted maximal heart rate) and a peak blood pressure of 178/72 mmHg. The baseline ECG demonstrated sinus rhythm with first-degree AV block and marked sinus arrhythmia versus Mobitz type I second-degree AV block. The peak pharmacologic ECG failed to show any ischemic changes. There was no complaint of chest discomfort during pharmacologic infusion or recovery. The patient was injected with 12.2 millicuries of technetium 99m Cardiolite and subsequently rest SPECT Cardiolite nuclear imaging was obtained in the horizontal long, vertical long, and short axis views. The patient underwent pharmacologic (Regadenoson) evaluation. The patient was injected with 36.5 millicuries of technetium 99m Cardiolite and subsequently stress SPECT Cardiolite nuclear imaging was obtained in the horizontal long, vertical long, and short axis views. No gated images available. The examination was stopped secondary to completion of protocol. Rest and stress SPECT Cardiolite nuclear imaging status post realignment, normalization, and attenuation correction demonstrate mildly reduced perfusion of the inferior wall at rest which gets mildly worse post Lexiscan administration. This could be suggestive of previous nontransmural infarct with mild larry-infarct ischemia. Impression: 1. Pharmacologic (Regadenoson) evaluation 2. Peak pharmacologic ECG with no diagnostic ischemic changes. 3. Baseline wander makes ECG interpretation difficult. However consider sinus rhythm with marked sinus arrhythmia with first-degree AV block versus Mobitz type I second-degree AV block. 5. Mildly reduced perfusion of the inferior wall at rest with mild worsening post Lexiscan infusion. Consider previous nontransmural infarct with mild larry- infarct ischemia. Recommend coronary CT angio versus conventional angiography for further evaluation if clinically indicated. 6. No gated images available. This note was generated with [employer] software. It may contain incorrect words, spelling, and punctuation that were not noted in checking the note before signing.
== END | disposition home or self-care (01) ==
LOC: CVS 06:46
PROVIDERS: PCP Family Medicine Geriatric Medicine; Referring Provider Internal Medicine Cardiovascular Disease; Visit Provider Internal Medicine Cardiovascular Disease
DX: I25.10 Atherosclerotic heart disease of native coronary artery without angina pectoris (principal); I49.5 Sick sinus syndrome
CPT/HCPCS: 78452; 93017; 93306; A9500; J2785

== ENCOUNTER → 2025-02-03 | Outpatient (CLI) | payer MEDICARE, SELFPAY | END | disposition home or self-care (01) | PROVIDERS: PCP Family Medicine Geriatric Medicine; Referring Provider Nurse Practitioner Gerontology; Visit Provider Nurse Practitioner Gerontology | DX: R00.1 Bradycardia, unspecified (principal); I49.5 Sick sinus syndrome | CPT/HCPCS: 93225; 93226 ==

== ENCOUNTER → 2025-02-18 | Outpatient (CLI) | payer MEDICARE, SELFPAY ==
[2025-02-18 07:16] VITALS: BP 187/65; PULSE 54; RESP 16; TEMP 36.6; O2SAT 100; BMI 24.6
[2025-02-18 07:28] VITALS: BP 187/65; PULSE 45
[2025-02-18] MEDS: Nitroglycerin SL (ED/IMG/CATH) 0.4 MG TABLET SL (07:28)
[2025-02-18 07:34] VITALS: BP 172/51; PULSE 54; RESP 16; O2SAT 95
== END | disposition home or self-care (01) ==
LOC: CT 06:43
PROVIDERS: PCP Family Medicine Geriatric Medicine; Referring Provider Student in an Organized Health Care Education/Training Program; Visit Provider Student in an Organized Health Care Education/Training Program
DX: R94.39 Abnormal result of other cardiovascular function study (principal); I25.10 Atherosclerotic heart disease of native coronary artery without angina pectoris; E78.5 Hyperlipidemia, unspecified
CPT/HCPCS: 75574

== ENCOUNTER → 2025-04-09 | Outpatient (CLI) | payer MEDICARE, SELFPAY ==
[2025-04-09 12:27] LABS: Hematocrit 31.6 % (40-54); Hemoglobin 10.6 g/dL (13.0-16.5); Immature Granulocytes Count 0.030 X10^3/uL (0.0-0.0); Mean Corp Hgb Conc 33.5 g/dL (32-36); Mean Corpuscular Volume 96.3 fL (80-94); Mean Platelet Vol. 10.6 fl (6.2-12.0); NRBC Flagged by Analyzer 0 % (0-5); Platelet Count 203 K/mm3 (150-450); RBC Distribution Width CV 13.1 % (11.6-14.6); RBC Distribution Width SD 45.9 fl (35.1-43.9); Red Blood Count 3.28 M/mm3 (4.6-6.2); White Blood Count 4.9 K/mm3 (4.4-11.0)
[2025-04-09 13:09] LABS: AST(SGOT) 24 U/L (<=37); Alanine Aminotransfer ALT/SGPT 21 U/L (<=46); Albumin, Serum 4.3 g/dL (3.4-4.8); Alkaline Phosphatase 54 U/L (40-129); Anion Gap 11 (5-15); BUN 27 mg/dL (4-19); BUN/Creat Ratio 27.8 RATIO (10-20); Calcium,Total 9.5 mg/dL (7.6-11.0); Carbon Dioxide 23.2 mmol/L (21.0-32.0); Chloride 105 mmol/L (98-108); Cholesterol 123 mg/dL (<=200); Globulin 2.3 g/dL (2.2-4.2); Glucose 115 mg/dL (70-99); Low Density Lipoprotein Calc. 57 mg/dL; Potassium 4.6 mmol/L (3.3-5.1); Triglycerides 101 mg/dL; Very Low Density Lipoprotein 20 mg/dL (5-40); cholesterol:hdl ratio screen 2.71
[2025-04-09 13:55] LABS: Vitamin D,25 Hydroxy 27.0 ng/mL (30-100)
== END | disposition home or self-care (01) ==
LOC: LAB 11:31
PROVIDERS: PCP Family Medicine Geriatric Medicine; Referring Provider Family Medicine Geriatric Medicine; Visit Provider Family Medicine Geriatric Medicine
DX: E03.9 Hypothyroidism, unspecified (principal); E55.9 Vitamin D deficiency, unspecified; E78.5 Hyperlipidemia, unspecified; R53.83 Other fatigue
CPT/HCPCS: 36415; 80053; 80061; 82306; 84443; 85025